=== PATIENT | male | born 1960 | race African-American/Black ===

== ENCOUNTER 2017-12-22 08:58 | Emergency (ER) | payer MEDICAID ==
[2017-12-22 14:41] LABS: ADD MAN DIFF? NO
[2017-12-22 14:46] LABS: BASOPHILS % 0.7 % (0.0-2.0); EOSINOPHILS # 0.3 10^3/ul (0.0-0.5); EOSINOPHILS % 4.4 % (0.0-7.0); HEMOGLOBIN 13.4 g/dl (14.0-18.0); LYMPHOCYTES # 1.9 10^3/ul (0.8-2.9); LYMPHOCYTES % 32.6 % (15.0-51.0); MEAN CORPUSCULAR HEMOGLOBIN 33.1 pg (29.0-33.0); MEAN CORPUSCULAR HGB CONC 34.4 g/dl (32.0-37.0); MEAN CORPUSCULAR VOLUME 96.3 fl (82.0-101.0); MEAN PLATELET VOLUME 8.8 fl (7.4-10.4); MONOCYTE # 0.5 10^3/ul (0.3-0.9); MONOCYTES % 8.1 % (0.0-11.0); NEUTROPHIL # 3.1 10^3/ul (1.6-7.5); NEUTROPHILS % 53.8 % (39.0-77.0); PLATELET COUNT 279 10^3/UL (140-415); RED BLOOD COUNT 4.05 10^6/ul (4.70-6.10); RED CELL DISTRIBUTION WIDTH 12.4 % (11.5-14.5)
[2017-12-22 14:46] LABS: WHITE BLOOD COUNT 5.7 10^3/ul (4.8-10.8)
[2017-12-22 15:07] LABS: ANION GAP 14 (8-16); BLOOD UREA NITROGEN 20 mg/dl (7-20); CARBON DIOXIDE 29 mmol/L (21-31); CHLORIDE 106 mmol/L (97-110); CREATININE 1.24 mg/dl (0.61-1.24); GLUCOSE 94 mg/dl (70-220); POTASSIUM 4.6 mmol/L (3.5-5.1); SODIUM 144 mmol/L (135-144)
[2017-12-22 15:29] LABS: TROPONIN-I < 0.012 ng/ml (0.00-0.12)
== END 2017-12-22 17:18 | disposition home or self-care (01) ==
LOC: E/R 08:58
DX: D64.9 Anemia, unspecified (principal)
CPT/HCPCS: 71045; 80048; 84484; 85025; 93005; 99285-25

== ENCOUNTER 2018-05-01 06:11 | Inpatient (IN) | payer OTHER, MEDICAID ==
[2018-05-01] MEDS: ASPIRIN 325 MG TAB PO (07:29)
[2018-05-01] MEDS: morphine 4 MG/ML VIAL IV (07:29)
[2018-05-01] MEDS: ONDANSETRON 4 MG INJ IV (07:29)
[2018-05-01] MEDS: SOD CHLORIDE 0.9% 1,000 ML IV (07:29)
[2018-05-01] MEDS: NITROGLYCERIN 2% 1 GM OINT PKT TD (07:30)
[2018-05-01 07:41] LABS: ADD MAN DIFF? NO
[2018-05-01 07:51] LABS: BASOPHILS % 0.5 % (0.0-2.0); EOSINOPHILS % 0.2 % (0.0-7.0); HEMATOCRIT 42.6 % (42.0-52.0); HEMOGLOBIN 14.4 g/dl (14.0-18.0); LYMPHOCYTES # 1.5 10^3/ul (0.8-2.9); LYMPHOCYTES % 18.7 % (15.0-51.0); MEAN CORPUSCULAR HEMOGLOBIN 31.7 pg (29.0-33.0); MEAN CORPUSCULAR HGB CONC 33.8 g/dl (32.0-37.0); MEAN CORPUSCULAR VOLUME 93.8 fl (82.0-101.0); MEAN PLATELET VOLUME 9.2 fl (7.4-10.4); MONOCYTE # 0.6 10^3/ul (0.3-0.9); MONOCYTES % 7.7 % (0.0-11.0); NEUTROPHIL # 5.9 10^3/ul (1.6-7.5); NEUTROPHILS % 72.8 % (39.0-77.0); PLATELET COUNT 274 10^3/UL (140-415); RED BLOOD COUNT 4.54 10^6/ul (4.70-6.10); RED CELL DISTRIBUTION WIDTH 12.9 % (11.5-14.5)
[2018-05-01 07:51] LABS: WHITE BLOOD COUNT 8.2 10^3/ul (4.8-10.8)
[2018-05-01 07:54] LABS: INR 1.01; PARTIAL THROMBOPLASTIN TIME 28.1 Sec (25.0-35.0); PROTIME 13.4 Sec (11.9-14.9)
[2018-05-01 08:00] LABS: ALANINE AMINOTRANSFERASE 49 IU/L (13-69); ALBUMIN 4.9 g/dl (3.3-4.9); ALBUMIN/GLOBULIN RATIO 1.53; ALKALINE PHOSPHATASE 80 IU/L (42-121); ANION GAP 22 (8-16); ASPARTATE AMINO TRANSFERASE 109 IU/L (15-46); BILIRUBIN,INDIRECT 0.3 mg/dl (0-1.1); BILIRUBIN,TOTAL 0.3 mg/dl (0.2-1.3); BLOOD UREA NITROGEN 15 mg/dl (7-20); CALCIUM 9.1 mg/dl (8.4-10.2); CARBON DIOXIDE 25 mmol/L (21-31); CHLORIDE 103 mmol/L (97-110); CREATININE 1.24 mg/dl (0.61-1.24); GLUCOSE 113 mg/dl (70-220); LIPASE 32 U/L (23-300); SODIUM 146 mmol/L (135-144); TOTAL PROTEIN 8.1 g/dl (6.1-8.1)
[2018-05-01 08:10] LABS: TROPONIN-I < 0.012 ng/ml (0.000-0.120)
[2018-05-01] MEDS ORDERED: ACETAMINOPHEN 325 MG TAB PO ×2 (11:00→12:00)
[2018-05-01] MEDS ORDERED: ONDANSETRON 4 MG INJ IV ×2 (11:00→12:00)
[2018-05-01] MEDS ORDERED: DOCUSATE SODIUM 100 MG CAP PO (12:00)
[2018-05-01] MEDS ORDERED: NACL 0.9% 3 ML SYG IV (12:00)
[2018-05-01] MEDS ORDERED: NITROGLYCERIN (SL) 0.4 MG TAB SL (12:00)
[2018-05-01] MEDS ORDERED: HYDROCODONE/APAP (5/325) TAB PO (12:00)
[2018-05-01] MEDS: SOD CHLORIDE 0.45% 1,000 ML IV (12:35)
[2018-05-01 13:56] LABS: CK-MB 5.67 ng/ml (0.0-2.4); TROPONIN-I < 0.012 ng/ml (0.000-0.120)
[2018-05-01 14:06] LABS: CK INDEX 0.1; CREATINE KINASE 5344 IU/L (23-200)
[2018-05-01 21:04] LABS: CK INDEX 0.2; CK-MB 9.65 ng/ml (0.0-2.4); CREATINE KINASE 5362 IU/L (23-200); TROPONIN-I < 0.012 ng/ml (0.000-0.120)
[2018-05-01] MEDS: FAMOTIDINE 20 MG TAB PO (21:13)
[2018-05-02] MEDS: SOD CHLORIDE 0.45% 1,000 ML IV ×4 (00:17→20:10)
[2018-05-02 06:33] LABS: ADD MAN DIFF? NO
[2018-05-02 06:42] LABS: BASOPHILS % 0.6 % (0.0-2.0); EOSINOPHILS # 0.2 10^3/ul (0.0-0.5); EOSINOPHILS % 3.8 % (0.0-7.0); HEMATOCRIT 40.4 % (42.0-52.0); HEMOGLOBIN 13.2 g/dl (14.0-18.0); LYMPHOCYTES # 1.9 10^3/ul (0.8-2.9); LYMPHOCYTES % 29.7 % (15.0-51.0); MEAN CORPUSCULAR HEMOGLOBIN 31.4 pg (29.0-33.0); MEAN CORPUSCULAR HGB CONC 32.7 g/dl (32.0-37.0); MEAN PLATELET VOLUME 9.1 fl (7.4-10.4); MONOCYTE # 0.6 10^3/ul (0.3-0.9); NEUTROPHIL # 3.6 10^3/ul (1.6-7.5); NEUTROPHILS % 56.7 % (39.0-77.0); PLATELET COUNT 218 10^3/UL (140-415); RED BLOOD COUNT 4.21 10^6/ul (4.70-6.10)
[2018-05-02 06:42] LABS: WHITE BLOOD COUNT 6.3 10^3/ul (4.8-10.8)
[2018-05-02 07:02] LABS: ALANINE AMINOTRANSFERASE 47 IU/L (13-69); ALBUMIN 3.9 g/dl (3.3-4.9); ALBUMIN/GLOBULIN RATIO 1.44; ALKALINE PHOSPHATASE 63 IU/L (42-121); ANION GAP 15 (8-16); ASPARTATE AMINO TRANSFERASE 83 IU/L (15-46); BILIRUBIN,INDIRECT 0.5 mg/dl (0-1.1); BILIRUBIN,TOTAL 0.5 mg/dl (0.2-1.3); BLOOD UREA NITROGEN 17 mg/dl (7-20); CALCIUM 8.5 mg/dl (8.4-10.2); CARBON DIOXIDE 27 mmol/L (21-31); CHLORIDE 104 mmol/L (97-110); CHOLESTEROL 142 mg/dl (100-200); CREATININE 1.17 mg/dl (0.61-1.24); GLUCOSE 89 mg/dl (70-220); HDL CHOLESTEROL 35 mg/dl (28-71); LDL CHOLESTEROL,CALCULATED 87 mg/dl; MAGNESIUM 2.1 mg/dl (1.7-2.5); PHOSPHORUS 3.2 mg/dl (2.5-4.9); POTASSIUM 3.8 mmol/L (3.5-5.1); SODIUM 142 mmol/L (135-144); TOTAL PROTEIN 6.6 g/dl (6.1-8.1); TRIGLYCERIDES 99 mg/dl (0-149)
[2018-05-02 07:28] LABS: HEMOGLOBIN A1C 6.7 % (0-5.9)
[2018-05-02] MEDS: FAMOTIDINE 20 MG TAB PO ×2 (08:59→20:10)
[2018-05-02] MEDS: ASPIRIN 81 MG TAB PO (08:59)
[2018-05-02] MEDS: ENOXAPARIN 40 MG/0.4 ML SYG SC (09:06)
[2018-05-02] MEDS: INSULIN ASPART [NOVOLOG] 3 ML PEN SC ×3 (11:45→20:10)
[2018-05-02] MEDS: SOD CHLORIDE 0.9% 1,000 ML IV (11:45)
[2018-05-02] MEDS ORDERED: DEXTROSE 50% 50 ML SYRINGE IV ×2 (12:00)
[2018-05-02] MEDS ORDERED: GLUCOSE GEL 15 GRAM TUBE BUCCAL (12:00)
[2018-05-02] MEDS ORDERED: GLUCOSE GEL 15 GRAM TUBE PO ×2 (12:00)
[2018-05-02] MEDS ORDERED: GLUCAGON 1 MG INJ IM (12:00)
[2018-05-03] MEDS: ACCU-CHEK XX (01:19)
[2018-05-03] MEDS: SOD CHLORIDE 0.45% 1,000 ML IV ×2 (01:34→12:17)
[2018-05-03 06:46] LABS: ANION GAP 14 (8-16); BLOOD UREA NITROGEN 17 mg/dl (7-20); CALCIUM 8.1 mg/dl (8.4-10.2); CARBON DIOXIDE 24 mmol/L (21-31); CHLORIDE 110 mmol/L (97-110); CREATINE KINASE 1525 IU/L (23-200); CREATININE 1.19 mg/dl (0.61-1.24); GLUCOSE 108 mg/dl (70-220); POTASSIUM 3.6 mmol/L (3.5-5.1); SODIUM 144 mmol/L (135-144)
[2018-05-03 06:51] LABS: CK INDEX 0.1
[2018-05-03 06:52] LABS: CK-MB 1.75 ng/ml (0.0-2.4); TROPONIN-I < 0.012 ng/ml (0.000-0.120)
[2018-05-03] MEDS: INSULIN ASPART [NOVOLOG] 3 ML PEN SC ×2 (07:35→11:45)
[2018-05-03] MEDS: FAMOTIDINE 20 MG TAB PO (08:17)
[2018-05-03] MEDS: ASPIRIN 81 MG TAB PO (08:17)
[2018-05-03] MEDS: ENOXAPARIN 40 MG/0.4 ML SYG SC (08:18)
[2018-05-03] MEDS: SOD CHLORIDE 0.9% 500 ML IV (13:19)
== END 2018-05-03 14:15 | disposition home or self-care (01) | DRG 313 ==
LOC: E/R 06:11 → MS3 10:58
DX: R07.9 Chest pain, unspecified (principal); M62.82 Rhabdomyolysis; E87.0 Hyperosmolality and hypernatremia; F10.10 Alcohol abuse, uncomplicated; K21.9 Gastro-esophageal reflux disease without esophagitis; E11.9 Type 2 diabetes mellitus without complications; E86.0 Dehydration; R00.0 Tachycardia, unspecified
CPT/HCPCS: 36415; 71045; 74176; 80048; 80053; 80061; 80307; 82550; 82553; 82962; 83036; 83690; 83735; 84100; 84443; 84484; 85025; 85610; 85730; 93005; 93306; 96374; 96375; 99285-25

== ENCOUNTER 2018-09-18 10:46 | Observation (INO) | payer OTHER ==
[2018-09-18 11:19] LABS: ADD MAN DIFF? NO
[2018-09-18 11:22] LABS: BASOPHIL # 0.1 10^3/ul (0.0-0.1); EOSINOPHILS # 0.5 10^3/ul (0.0-0.5); EOSINOPHILS % 7.7 % (0.0-7.0); HEMATOCRIT 41.1 % (42.0-52.0); LYMPHOCYTES # 1.7 10^3/ul (0.8-2.9); LYMPHOCYTES % 29.8 % (15.0-51.0); MEAN CORPUSCULAR HEMOGLOBIN 33.1 pg (29.0-33.0); MEAN CORPUSCULAR HGB CONC 34.1 g/dl (32.0-37.0); MEAN CORPUSCULAR VOLUME 97.2 fl (82.0-101.0); MEAN PLATELET VOLUME 8.7 fl (7.4-10.4); MONOCYTE # 0.5 10^3/ul (0.3-0.9); MONOCYTES % 8.6 % (0.0-11.0); NEUTROPHIL # 3.1 10^3/ul (1.6-7.5); NEUTROPHILS % 52.6 % (39.0-77.0); PLATELET COUNT 228 10^3/UL (140-415); RED BLOOD COUNT 4.23 10^6/ul (4.70-6.10); RED CELL DISTRIBUTION WIDTH 13.2 % (11.5-14.5)
[2018-09-18 11:22] LABS: WHITE BLOOD COUNT 5.8 10^3/ul (4.8-10.8)
[2018-09-18] MEDS: ASPIRIN 81 MG TAB PO (11:26)
[2018-09-18] MEDS: NITROGLYCERIN 2% 1 GM OINT PKT TD (11:26)
[2018-09-18 11:42] LABS: INR 0.88; PT RATIO 0.9
[2018-09-18 11:43] LABS: PARTIAL THROMBOPLASTIN TIME 28.8 Sec (23.0-35.0)
[2018-09-18 11:45] LABS: D-DIMER 896.96 ng/ml (<460)
[2018-09-18 11:59] LABS: ANION GAP 8 (5-13); BLOOD UREA NITROGEN 15 mg/dl (7-20); CALCIUM 8.6 mg/dl (8.4-10.2); CARBON DIOXIDE 25 mmol/L (21-31); CHLORIDE 108 mmol/L (97-110); CREATININE 1.17 mg/dl (0.61-1.24); Estimated GFR > 60 mL/min (>60); GLUCOSE 114 mg/dl (70-220); POTASSIUM 4.3 mmol/L (3.5-5.1); SODIUM 141 mmol/L (135-144)
[2018-09-18 12:11] LABS: B-TYPE NATRIURETIC PEPTIDE 19 PG/ML (0-125); TROPONIN-I < 0.012 ng/ml (0.000-0.120)
[2018-09-18] MEDS ORDERED: DEXTROSE 50% 50 ML SYRINGE IV ×2 (13:00)
[2018-09-18] MEDS ORDERED: ONDANSETRON 4 MG INJ IV ×2 (13:00)
[2018-09-18] MEDS ORDERED: MAGNESIUM HYDROXIDE 30ML CUP PO (13:00)
[2018-09-18] MEDS ORDERED: ACETAMINOPHEN 325 MG TAB PO ×2 (13:00)
[2018-09-18] MEDS ORDERED: NACL 0.9% 3 ML SYG IV (13:00)
[2018-09-18] MEDS ORDERED: NITROGLYCERIN (SL) 0.4 MG TAB SL (13:00)
[2018-09-18] MEDS ORDERED: GLUCAGON 1 MG INJ IM (13:00)
[2018-09-18] MEDS ORDERED: GLUCOSE GEL 15 GRAM TUBE BUCCAL (13:00)
[2018-09-18] MEDS ORDERED: DOCUSATE SODIUM 100 MG CAP PO (13:00)
[2018-09-18] MEDS ORDERED: GLUCOSE GEL 15 GRAM TUBE PO ×2 (13:00)
[2018-09-18] MEDS ORDERED: ALBUTEROL 0.083% (NEB) 2.5 MG/3 ML AMP HHN (13:00)
[2018-09-18] MEDS ORDERED: HYDROCODONE/APAP (5/325) TAB PO (13:00)
[2018-09-18 13:18] LABS: CREATINE KINASE 894 IU/L (23-200)
[2018-09-18 14:51] LABS: ALANINE AMINOTRANSFERASE 44 IU/L (13-69); ALBUMIN 4.1 g/dl (3.3-4.9); ALKALINE PHOSPHATASE 63 IU/L (42-121); ASPARTATE AMINO TRANSFERASE 42 IU/L (15-46); TOTAL PROTEIN 6.8 g/dl (6.1-8.1)
[2018-09-18 15:06] LABS: BILIRUBIN,INDIRECT 0.3 mg/dl (0-1.1); BILIRUBIN,TOTAL 0.3 mg/dl (0.2-1.3)
[2018-09-18] MEDS: IPRATROPIUM (NEB) 0.5 MG/2.5 ML AMP NEB (16:15)
[2018-09-18] MEDS: ALBUTEROL 0.083% (NEB) 2.5 MG/3 ML AMP NEB (16:15)
[2018-09-18] MEDS: NICOTINE (21 MG/24 HR) PATCH TRANSDERM (16:48)
[2018-09-18] MEDS: SOD CHLORIDE 0.9% 1,000 ML IV (16:49)
[2018-09-18] MEDS: INSULIN ASPART [NOVOLOG] 3 ML PEN SC ×2 (17:38→21:00)
[2018-09-18 18:56] LABS: CREATINE KINASE 730 IU/L (23-200)
[2018-09-18 19:09] LABS: CK INDEX 0.1; CK-MB 0.74 ng/ml (0.0-2.4); TROPONIN-I < 0.012 ng/ml (0.000-0.120)
[2018-09-18] MEDS: ALBUTEROL 0.083% (NEB) 2.5 MG/3 ML AMP HHN (20:00)
[2018-09-18 23:53] LABS: CREATINE KINASE 602 IU/L (23-200)
[2018-09-19 00:07] LABS: CK INDEX 0.1; CK-MB 0.63 ng/ml (0.0-2.4); TROPONIN-I < 0.012 ng/ml (0.000-0.120)
[2018-09-19] MEDS: PANTOPRAZOLE (EC) 40 MG TAB PO (05:45)
[2018-09-19 06:02] LABS: ADD MAN DIFF? NO
[2018-09-19 06:08] LABS: WHITE BLOOD COUNT 6.8 10^3/ul (4.8-10.8)
[2018-09-19 06:08] LABS: BASOPHIL # 0.1 10^3/ul (0.0-0.1); BASOPHILS % 0.9 % (0.0-2.0); EOSINOPHILS # 0.5 10^3/ul (0.0-0.5); EOSINOPHILS % 6.8 % (0.0-7.0); HEMATOCRIT 39.1 % (42.0-52.0); LYMPHOCYTES # 1.8 10^3/ul (0.8-2.9); LYMPHOCYTES % 25.9 % (15.0-51.0); MEAN CORPUSCULAR HEMOGLOBIN 32.7 pg (29.0-33.0); MEAN CORPUSCULAR HGB CONC 33.2 g/dl (32.0-37.0); MEAN CORPUSCULAR VOLUME 98.5 fl (82.0-101.0); MEAN PLATELET VOLUME 8.9 fl (7.4-10.4); MONOCYTE # 0.5 10^3/ul (0.3-0.9); MONOCYTES % 6.7 % (0.0-11.0); NEUTROPHILS % 59.6 % (39.0-77.0); PLATELET COUNT 225 10^3/UL (140-415); RED BLOOD COUNT 3.97 10^6/ul (4.70-6.10); RED CELL DISTRIBUTION WIDTH 13.3 % (11.5-14.5)
[2018-09-19 07:11] LABS: ANION GAP 5 (5-13); BLOOD UREA NITROGEN 22 mg/dl (7-20); CALCIUM 8.7 mg/dl (8.4-10.2); CARBON DIOXIDE 25 mmol/L (21-31); CHLORIDE 111 mmol/L (97-110); CREATININE 1.21 mg/dl (0.61-1.24); Estimated GFR > 60 mL/min (>60); GLUCOSE 117 mg/dl (70-220); POTASSIUM 4.6 mmol/L (3.5-5.1); SODIUM 141 mmol/L (135-144)
[2018-09-19 07:15] LABS: CREATINE KINASE 588 IU/L (23-200)
[2018-09-19] MEDS: ALBUTEROL 0.083% (NEB) 2.5 MG/3 ML AMP HHN (07:47)
[2018-09-19] MEDS: INSULIN ASPART [NOVOLOG] 3 ML PEN SC ×2 (08:00→12:00)
[2018-09-19] MEDS: NICOTINE (21 MG/24 HR) PATCH TRANSDERM (08:15)
[2018-09-19] MEDS: ENOXAPARIN 40 MG/0.4 ML SYG SC (08:19)
== END 2018-09-19 12:28 | disposition home or self-care (01) ==
LOC: E/R 10:46 → 6WM 12:46
DX: J98.01 Acute bronchospasm (principal); R07.89 Other chest pain; J70.5 Respiratory conditions due to smoke inhalation; R73.03 Prediabetes; R06.02 Shortness of breath; T59.811A Toxic effect of smoke, accidental (unintentional), initial encounter; F17.200 Nicotine dependence, unspecified, uncomplicated; Z77.22 Contact with and (suspected) exposure to environmental tobacco smoke (acute) (chronic)
CPT/HCPCS: 36415; 71045; 76705; 78582; 80048; 80076; 82550; 82553; 82962; 83036; 83735; 83880; 84484; 85025; 85378; 85610; 85730; 93005; 93970; 94640; 94664; 97161; 97166; 99285-25; G0378

== ENCOUNTER 2018-11-20 09:49 | Observation (INO) | payer OTHER ==
[2018-11-20] MEDS: ASPIRIN 325 MG TAB PO (11:05)
[2018-11-20 11:10] LABS: ADD MAN DIFF? NO
[2018-11-20 11:11] LABS: BASOPHIL # 0.1 10^3/ul (0.0-0.1); BASOPHILS % 0.9 % (0.0-2.0); EOSINOPHILS # 0.4 10^3/ul (0.0-0.5); HEMATOCRIT 43.2 % (42.0-52.0); HEMOGLOBIN 14.7 g/dl (14.0-18.0); LYMPHOCYTES # 1.3 10^3/ul (0.8-2.9); MEAN CORPUSCULAR HEMOGLOBIN 33.1 pg (29.0-33.0); MEAN CORPUSCULAR VOLUME 97.3 fl (82.0-101.0); MEAN PLATELET VOLUME 8.9 fl (7.4-10.4); MONOCYTE # 0.4 10^3/ul (0.3-0.9); MONOCYTES % 7.6 % (0.0-11.0); NEUTROPHIL # 3.4 10^3/ul (1.6-7.5); NEUTROPHILS % 61.1 % (39.0-77.0); PLATELET COUNT 243 10^3/UL (140-415); RED BLOOD COUNT 4.44 10^6/ul (4.70-6.10); RED CELL DISTRIBUTION WIDTH 13.2 % (11.5-14.5)
[2018-11-20 11:11] LABS: WHITE BLOOD COUNT 5.6 10^3/ul (4.8-10.8)
[2018-11-20 11:29] LABS: ANION GAP 10 (5-13); BLOOD UREA NITROGEN 17 mg/dl (7-20); CARBON DIOXIDE 26 mmol/L (21-31); CHLORIDE 106 mmol/L (97-110); CREATININE 1.19 mg/dl (0.61-1.24); Estimated GFR > 60 mL/min (>60); GLUCOSE 120 mg/dl (70-220); POTASSIUM 4.3 mmol/L (3.5-5.1); SODIUM 142 mmol/L (135-144)
[2018-11-20 11:41] LABS: B-TYPE NATRIURETIC PEPTIDE < 11 PG/ML (0-125); TROPONIN-I < 0.012 ng/ml (0.000-0.120)
[2018-11-20] MEDS ORDERED: ONDANSETRON 4 MG INJ IV ×2 (12:00→14:00)
[2018-11-20] MEDS ORDERED: ACETAMINOPHEN 325 MG TAB PO ×2 (12:00→14:00)
[2018-11-20] MEDS ORDERED: HYDROCODONE/APAP (5/325) TAB PO (14:00)
[2018-11-20] MEDS ORDERED: MAGNESIUM HYDROXIDE 30ML CUP PO (14:00)
[2018-11-20] MEDS ORDERED: LORAZEPAM 2 MG INJ IV (14:00)
[2018-11-20] MEDS ORDERED: DOCUSATE SODIUM 100 MG CAP PO (14:00)
[2018-11-20] MEDS ORDERED: hydrALAzine 20 MG INJ IV (14:00)
[2018-11-20] MEDS ORDERED: ALBUTEROL/IPRATROPIUM (NEB) 3 ML AMP HHN (14:00)
[2018-11-20] MEDS ORDERED: ALBUTEROL HFA 8 GM INHALER INH (14:00)
[2018-11-20] MEDS ORDERED: NACL 0.9% 3 ML SYG IV (14:00)
[2018-11-20] MEDS ORDERED: morphine 2 MG INJ IV (14:00)
[2018-11-20] MEDS ORDERED: NITROGLYCERIN (SL) 0.4 MG TAB SL (14:00)
[2018-11-20 14:09] LABS: ETHANOL < 10.0 mg/dl (0-0)
[2018-11-20 14:24] LABS: FREE T4 (FREE THYROXINE) 0.97 ng/dl (0.64-1.79)
[2018-11-20 14:47] LABS: LIPASE 44 U/L (23-300)
[2018-11-20 15:29] LABS: CREATINE KINASE 1339 IU/L (23-200)
[2018-11-20 15:41] LABS: CK INDEX 0.1; CK-MB 1.53 ng/ml (0.0-2.4); TROPONIN-I < 0.012 ng/ml (0.000-0.120)
[2018-11-20] MEDS: SOD CHLORIDE 0.45% 1,000 ML IV (16:01)
[2018-11-20] MEDS: NICOTINE (21 MG/24 HR) PATCH TRANSDERM ×2 (16:01→16:03)
[2018-11-20] MEDS: GUAIFENESIN 20 MG/ML 5ML CUP PO (17:59)
[2018-11-20 20:13] LABS: CREATINE KINASE 1238 IU/L (23-200)
[2018-11-20 20:25] LABS: CK INDEX 0.1; TROPONIN-I < 0.012 ng/ml (0.000-0.120)
[2018-11-20] MEDS: HEPARIN 5,000 UNIT/1 ML VIAL SC (20:28)
[2018-11-21] MEDS: SOD CHLORIDE 0.45% 1,000 ML IV ×2 (02:59→06:41)
[2018-11-21 04:28] LABS: ADD MAN DIFF? NO
[2018-11-21 04:30] LABS: WHITE BLOOD COUNT 6.2 10^3/ul (4.8-10.8)
[2018-11-21 04:30] LABS: BASOPHIL # 0.1 10^3/ul (0.0-0.1); BASOPHILS % 0.8 % (0.0-2.0); EOSINOPHILS # 0.6 10^3/ul (0.0-0.5); EOSINOPHILS % 9.4 % (0.0-7.0); HEMATOCRIT 39.7 % (42.0-52.0); HEMOGLOBIN 13.3 g/dl (14.0-18.0); LYMPHOCYTES # 1.9 10^3/ul (0.8-2.9); MEAN CORPUSCULAR HEMOGLOBIN 33.3 pg (29.0-33.0); MEAN CORPUSCULAR HGB CONC 33.5 g/dl (32.0-37.0); MEAN CORPUSCULAR VOLUME 99.5 fl (82.0-101.0); MEAN PLATELET VOLUME 8.9 fl (7.4-10.4); MONOCYTE # 0.5 10^3/ul (0.3-0.9); MONOCYTES % 7.5 % (0.0-11.0); NEUTROPHIL # 3.2 10^3/ul (1.6-7.5); NEUTROPHILS % 52.1 % (39.0-77.0); PLATELET COUNT 233 10^3/UL (140-415); RED BLOOD COUNT 3.99 10^6/ul (4.70-6.10); RED CELL DISTRIBUTION WIDTH 13.1 % (11.5-14.5)
[2018-11-21 04:40] LABS: HEMOGLOBIN A1C 6.3 % (0-5.9)
[2018-11-21 04:47] LABS: CHOLESTEROL 170 mg/dl (100-200)
[2018-11-21 04:47] LABS: CHOL/HDL RATIO 5.4 RATIO; CREATINE KINASE 1073 IU/L (23-200); HDL CHOLESTEROL 31 mg/dl (28-71); LDL CHOLESTEROL,CALCULATED 114 mg/dl; TRIGLYCERIDES 123 mg/dl (0-149)
[2018-11-21 04:49] LABS: ANION GAP 8 (5-13); BLOOD UREA NITROGEN 23 mg/dl (7-20); CALCIUM 8.8 mg/dl (8.4-10.2); CARBON DIOXIDE 27 mmol/L (21-31); CHLORIDE 107 mmol/L (97-110); CREATININE 1.19 mg/dl (0.61-1.24); Estimated GFR > 60 mL/min (>60); GLUCOSE 115 mg/dl (70-220); MAGNESIUM 2.1 mg/dl (1.7-2.5); PHOSPHORUS 4.5 mg/dl (2.5-4.9); POTASSIUM 4.5 mmol/L (3.5-5.1); SODIUM 142 mmol/L (135-144)
[2018-11-21 04:59] LABS: CK INDEX 0.1; CK-MB 1.37 ng/ml (0.0-2.4); TROPONIN-I < 0.012 ng/ml (0.000-0.120)
[2018-11-21 05:18] LABS: THYROID STIMULATING HORMONE 0.885 MIU/L (0.465-4.680)
[2018-11-21] MEDS: PANTOPRAZOLE (EC) 40 MG TAB PO (06:32)
[2018-11-21] MEDS: ASPIRIN (EC) 325 MG TAB PO (08:24)
[2018-11-21] MEDS: HEPARIN 5,000 UNIT/1 ML VIAL SC (08:37)
[2018-11-21] MEDS: NICOTINE (21 MG/24 HR) PATCH TRANSDERM (10:31)
== END 2018-11-21 11:50 | disposition home or self-care (01) ==
LOC: E/R 09:49 → 6WM 11:51
DX: R07.9 Chest pain, unspecified (principal); J45.909 Unspecified asthma, uncomplicated; F17.200 Nicotine dependence, unspecified, uncomplicated; Z23 Encounter for immunization
CPT/HCPCS: 36415; 71045; 80048; 80061; 80307; 82550; 82553; 83036; 83690; 83735; 83880; 84100; 84439; 84443; 84484; 85025; 90686; 93005; 93306; 94664; 99285-25; G0378

== ENCOUNTER 2019-01-05 15:23 | Emergency (ER) | payer OTHER ==
[2019-01-05] MEDS: ACETAMINOPHEN 500 MG TAB PO (19:55)
[2019-01-05] MEDS: FLUORESCEIN STRIP RIGHT EYE (20:08)
[2019-01-05] MEDS: TETRACAINE 0.5% 4 ML OPH RIGHT EYE (20:08)
[2019-01-05] MEDS: AZITHROMYCIN 250 MG TAB PO (21:57)
[2019-01-05] MEDS: LIDOCAINE 1% (MPF) 5 ML VIAL INFIL (21:57)
[2019-01-05] MEDS: ALBUTEROL/IPRATROPIUM (NEB) 3 ML AMP HHN ×2 (21:57→22:44)
[2019-01-05] MEDS: ALBUTEROL HFA 8 GM INHALER INH (21:57)
[2019-01-05] MEDS: CEFTRIAXONE 1 GM INJ IM (21:59)
[2019-01-05] MEDS: ERYTHROMYCIN 1 GM OPH OINT RIGHT EYE (21:59)
== END 2019-01-05 23:15 | disposition home or self-care (01) ==
LOC: FTE 15:23
DX: S05.01XA Injury of conjunctiva and corneal abrasion without foreign body, right eye, initial encounter (principal); H11.31 Conjunctival hemorrhage, right eye; F17.210 Nicotine dependence, cigarettes, uncomplicated; R05 Cough; X58.XXXS Exposure to other specified factors, sequela; Y92.9 Unspecified place or not applicable
CPT/HCPCS: 71046; 94664; 96372; 99284-25